=== PATIENT | female | born 1965 | race American Indian/Alaskan Native ===

== ENCOUNTER 2019-02-07 06:03 | Observation (INO) | payer OTHER ==
[2019-02-05 11:56] LABS: Basophils % (Auto) 0.6 % (0.0-1.8); Eosinophils # (Auto) 0.1 K/mm3 (0.0-0.4); Eosinophils % (Auto) 0.9 % (0.0-4.3); Hematocrit 36.6 % (30.3-42.9); Hemoglobin 11.9 gm/dl (10.1-14.3); Lymphocytes # (Auto) 1.9 K/mm3 (1.2-5.4); Lymphocytes % (Auto) 33.4 % (13.4-35.0); Mean Corpuscular HGB Conc 33 % (30-34); Mean Corpuscular Volume 85 fl (79-97); Monocytes # (Auto) 0.3 K/mm3 (0.0-0.8); Monocytes % (Auto) 5.6 % (0.0-7.3); Platelet Count 203 K/mm3 (140-440); Red Cell Distribution Width 14.2 % (13.2-15.2)
[2019-02-05 12:17] LABS: BUN/Creatinine Ratio 20; Blood Urea Nitrogen 14 mg/dL (7-17); Hemolysis Index 15
--- NOTE | 2019-02-05 12:18 | Anesthesia Consultation ---
Anesthesia Consult and Med Hx Date of service: 02/07/19 - Airway Anesthetic Teeth Evaluation: Good, Bridges (right lower) ROM Head & Neck: Adequate Mental/Hyoid Distance: Adequate Mallampati Class: Class III Intubation Access Assessment: Possibly Difficult - Pulmonary Exam CTA: Yes - Cardiac Exam Cardiac Exam: RRR - Pre-Operative Health Status ASA Pre-Surgery Classification: ASA2 Proposed Anesthetic Plan: General Nerve Block: TAP Block - Pulmonary Hx Smoking: No Hx Respiratory Symptoms: No - Cardiovascular System Hx Hypertension: Yes Hx Heart Attack/AMI: No Hx Cardia Arrhythmia: Yes (1 episode a-fib 5 yrs ago w/ neg cardiac work up. No recurrence.) - Central Nervous System CVA: No - Gastrointestinal Hx Gastroesophageal Reflux Disease: No - Endocrine Hx Renal Disease: No Hx Liver Disease: No Hx Insulin Dependent Diabetes: No Hx Non-Insulin Dependent Diabetes: No Hx Thyroid Disease: No - Hematic Hx Anemia: Yes - Other Systems Hx Obesity: Yes (BMI 35) - Additional Comments Anesthesia Medical History Comments: No prior GA. No FHx anesthetic complications.
--- NOTE | 2019-02-06 15:23 | History and Physical Report ---
History of Present Illness Date of examination: 02/06/19 Date of admission: 02/07/2019 Chief complaint: pelvic pain History of present illness: 53y/o with a known history of uterine fibroids. The patient reports worsening of her pelvic pain. She has undergone a UFE in the past with resolution of her vaginal bleeding however the patient continues to experience pelvic pain. She elects for definitive surgical management. Past History Past Medical History: hypertension Past Surgical History: other (Essure; UFE) [employer] History: herpes Social history: - Obstetrical History : 1 Para: 1 Hx # Term Pregnancies: 1 Number of Pregnancies: 0 Spontaneous Abortions: 0 Induced : 0 Number of Living Children: 1 Medications and Allergies Allergies Allergy/AdvReac Type Severity Reaction Status Date / Time No Known Allergies Allergy Unverified 01/31/19 15:11 Home Medications Medication Instructions Recorded Confirmed Last Taken Type Acyclovir 400 mg PO DAILY 01/31/19 01/31/19 Unknown History hydroCHLOROthiazide [Hctz] 12.5 mg PO QDAY 01/31/19 01/31/19 Unknown History Active Meds: Active Medications Celecoxib (Celebrex) 200 mg PO PREOP NR Stop: 02/07/19 23:59 Fentanyl (Sublimaze) 100 mcg IV ONCE PRN PRN Reason: sedation for nerve block Gabapentin (Gabapentin) 300 mg PO PREOP NR Stop: 02/07/19 23:59 Lactated Ringer's (Lactated Ringers) 1,000 mls @ 100 mls/hr IV DIRECT ALEX Midazolam HCl (Versed) 2 mg IV PREOP NR Stop: 02/07/19 23:59 Review of Systems All systems: negative Genitourinary: pelvic pain - Vital Signs Vital signs: Vital Signs Temp Pulse Resp BP Pulse Ox 97.9 F 64 20 176/93 100 02/05/19 11:25 02/05/19 11:25 02/05/19 11:25 02/05/19 11:25 02/05/19 11:25 Temp Pulse Resp BP Pulse Ox 97.9 F 64 20 176/93 100 02/05/19 11:25 02/05/19 11:25 02/05/19 11:25 02/05/19 11:25 02/05/19 11:25 - Physical Exam Breasts: Positive: deferred Cardiovascular: Regular rate Lungs: Positive: Clear to auscultation Results Result Diagrams: 02/05/19 11:40 02/05/19 11:40 All other labs normal. Assessment and Plan - Patient Problems (1) Fibroid uterus Status: Acute Plan to address problem: proceed with a robotic hysterectomy/BSO (2) Chronic pelvic pain in female Status: Acute
[~2019-02-07 06:03] MED LIST: CELECOXIB 200 MG CAP PO NR; GABAPENTIN 300 MG CAP PO NR; LACTATED RINGERS 1,000 ML IV SCH; MIDAZOLAM 2 MG/2 ML INJ IV NR; ceFAZolin/Water 2 GM/20 ML 2 GM/20 ML SYRINGE IV NR; fentaNYL 100 MCG/2 ML INJ IV PRN
[2019-02-07] MEDS ORDERED: dexAMETHasone 4 MG/ML VIAL ONE (07:15)
[2019-02-07] MEDS ORDERED: ROCURONIUM 50 MG/5 ML INJ IV ONE (07:16)
[2019-02-07] MEDS ORDERED: fentaNYL 100 MCG/2 ML INJ ONE (07:16)
[2019-02-07] MEDS ORDERED: LIDOCAINE (1%) 10 MG/1 ML VIAL 20 ML MDV ONE (07:16)
[2019-02-07] MEDS ORDERED: LIDOCAINE MPF (2%) 20 MG/1 ML VIAL 5 ML ONE (07:16)
[2019-02-07] MEDS ORDERED: BUPIVACAINE-EPINEPHRINE/PF 0.25%-1:200,000 (30 ML) VIAL INFILTRATI ONE (07:16)
[2019-02-07] MEDS ORDERED: PROPOFOL 200 MG/20 ML VIAL IV ONE (07:17)
[2019-02-07] MEDS ORDERED: BUPIVACAINE/PF (0.5%) 5 MG/1 ML 30 ML VIAL INFILTRATI ONE (07:23)
[2019-02-07] MEDS ORDERED: GELATIN SPONGE,ABSORBABLE 1 GM POWDER MM ONE (07:23)
[2019-02-07] MEDS ORDERED: METHYLENE BLUE 50 MG/10 ML AMP ONE (07:23)
[2019-02-07] MEDS ORDERED: THROMBIN (RECOMBINANT) 5,000 UNIT VIAL TP ONE (07:24)
[2019-02-07] MEDS ORDERED: NEOMY 40 MG/POLYMYXIN B 200,000 UNITS/ML (GU) AMPULE IR ONE ×2 (07:24→08:40)
[2019-02-07] MEDS ORDERED: SODIUM CHLORIDE 0.9% IRR 1,500 ML BOTTLE IR ONE (08:41)
[2019-02-07] MEDS ORDERED: SODIUM CHLORIDE 0.9% IRRIG SOLN 2000 ML IR ONE (08:41)
[2019-02-07] MEDS ORDERED: dexAMETHasone 20 MG/5 ML VIAL ONE (08:50)
[2019-02-07] MEDS ORDERED: ONDANSETRON 4 MG/2 ML INJ ONE (08:50)
--- NOTE | 2019-02-07 08:51 | Operative Report ---
Operative Report Operative Report: Date of surgery: 02/07/2019 Preoperative diagnoses: Symptomatic uterine fibroids; pelvic pain Postoperative diagnoses: Same as above Procedure: Robotic hysterectomy and bilateral salpingo-oophorectomy Surgeon: Torie Foster M.D. Intake Clinician: Yuridia Meier Anesthesia: Gen. endotracheal anesthesia Estimated blood loss: 50 mL Pathology: Uterus, cervix, bilateral tubes and ovaries Indication: 53-year-old 001 with a history of symptomatic uterine fibroids. The patient reports worsening pelvic pain has elected to undergo definitive surgical management. Procedure: The patient was taken to the operating room and given general endotracheal anesthesia without complication. She is prepped and draped in a normal sterile fashion. A bivalve speculum was placed in the patient's vagina and a single- tooth tenaculum placed on the anterior lip of the cervix. The uterus was sounded with the uterine sound. A Mabaya uterine manipulator was placed in the bivalve speculum was then removed. Attention was then turned to the patient's abdomen where a 12 millimeter supra umbilical skin incision was then made. A Veress needle was placed and peritoneal entry was verified water-filled syringe. Insufflation of the peritoneal cavity was performed with CO2 gas. The 12 mm trocar was then placed under direct visualization. An additional 8 mm trocar was placed on the patient's left and right lateral side just opposite of the supraumbilical trocar. An additional 5 mm right lateral trocar was then placed as the accessory port. The Axel Miller device was used to close the fascia of the 12 mm incision. The patient was then placed in steep Trendelenburg. The da Zechariah robot was then engaged. A fenestrated forcep was placed in arm 2 and a vessel sealer was placed in arm 1. The surgeon then transferred to the surgical console. Gen. survey revealed an enlarged fibroid uterus with normal tubes and ovaries bilaterally. The infundibulopelvic ligament was then isolated on the right. The vessel sealer was used to coagulate the ligament which was then transected. The tube and ovary were transected from the supply. The round ligament was then coagulated and transected also. The vesicouterine peritoneum was then entered from the patient's right side. The uterine vessels were then coagulated with the vessel sealer. The vessels were then transected . Attention was then turned to the patient's left side where the infundibulopelvic ligament and mesosalpinx were again isolated coagulated and transected. The vesical peritoneum was then entered from the left and joined in the midline. Peritoneum was reflected off of the lower uterine segment. Uterine vessels were then coagulated and then transected. The blood supply to the uterus was adequately contained, a posterior colpotomy was made. The V care ring was visualized. Posterior colpotomy was created with the monopolar scissors. The incision was continued circumferentially until anterior colpotomy was made. The cervix and uterus were amputated from the vaginal cuff. The uterus was then removed along with the tubes and ovaries bilaterally through the vagina and a warm laparotomy sponge was placed and maintain the pneumoperitoneum. The vaginal cuff was then closed in a running fashion with V lock suture. Irrigation of the pelvis was performed. Hemoblast was applied to the incision. The skin was then reapproximated with 4-0 Monocryl. The tissue was sent to pathology which included the cervix, uterus, tubes and ovaries. The patient was then successfully extubated. She was then taken to the recovery room in stable condition. All sponge laps and needle counts were correct x2.
[2019-02-07] MEDS ORDERED: NEOSTIGMINE 10MG/10 ML INJ MDV ONE (08:52)
[2019-02-07] MEDS ORDERED: GLYCOPYRROLATE 0.4 MG/2 ML INJ ONE (08:52)
--- NOTE | 2019-02-07 09:14 | Anesthesia Day of Surgery ---
Anesthesia Day of Surgery - Day of Surgery Patient Examined: Yes Patient H&P Reviewed: Yes Patient is NPO: Yes
[2019-02-07] MEDS ORDERED: ONDANSETRON 4 MG/2 ML INJ IV PRN (09:30)
[2019-02-07] MEDS ORDERED: HYDROmorphone 1 MG/1 ML INJ IV PRN (09:30)
[2019-02-07] MEDS ORDERED: ZOLPIDEM 5 MG TAB PO PRN (09:30)
[2019-02-07] MEDS ORDERED: MORPHINE 4 MG/1 ML INJ IV PRN (09:30)
[2019-02-07] MEDS ORDERED: ACETAMINOPHEN 325 MG TAB PO PRN (09:30)
[2019-02-07] MEDS ORDERED: D5W/LACTATED RINGERS 1,000 ML IV SCH (09:30)
[2019-02-07] MEDS ORDERED: oxyCODONE /ACETAMINOPHEN 5-325MG TAB PO PRN (09:30)
[2019-02-07] MEDS ORDERED: IBUPROFEN 800 MG TAB PO PRN (09:30)
[2019-02-07] MEDS ORDERED: D5W/LACTATED RINGERS 1,000 ML IV ONE (09:41)
[2019-02-07] MEDS ORDERED: KETOROLAC 30 MG/1 ML INJ ONE (09:41)
[2019-02-07] MEDS: KETOROLAC 30 MG/1 ML INJ IV SCH ×2 (09:45→17:21)
--- NOTE | 2019-02-07 11:16 | Post Anesthesia Evaluation ---
- Post Anesthesia Evaluation Patient Participated: Yes Airway Patent: Yes Stable Respiratory Function: Yes Nausea/Vomiting: No Temp > 96.8F: Yes Pain Manageable: Yes Adequeate Hydration: Yes Anesthesia Complications: No
[2019-02-08 06:06] LABS: Hematocrit 35.2 % (30.3-42.9); Hemoglobin 11.8 gm/dl (10.1-14.3)
--- NOTE | 2019-02-08 08:06 | Progress Note ---
Assessment and Plan - Patient Problems (1) Fibroid uterus Current Visit: No Status: Acute Plan to address problem: patient doing well discharge home (2) Chronic pelvic pain in female Current Visit: No Status: Acute Subjective - Subjective Date of service: 02/08/19 Interval history: Patient reports feeling well. She has voided and tolerated her diet. Pain well controlled Patient reports: appetite normal, voiding normally, pain well controlled Objective - Vital Signs Latest vital signs: Vital Signs Temp Pulse Pulse Resp BP BP Pulse Ox 02/08/19 00:07 97.6 F 78 20 124/81 97 02/07/19 20:29 97.2 F L 70 20 136/85 97 02/07/19 16:24 98.6 F 63 18 135/73 92 02/07/19 10:35 63 16 02/07/19 10:22 97.8 F 63 16 145/85 100 02/07/19 10:20 97.8 F 63 16 145/85 98 02/07/19 10:15 16 02/07/19 10:10 69 15 134/85 100 02/07/19 09:55 97.2 F L 68 15 114/84 100 02/07/19 09:45 14 02/07/19 09:40 67 15 115/81 100 02/07/19 09:25 69 17 125/88 100 02/07/19 09:20 70 16 126/83 100 02/07/19 09:15 77 15 141/79 100 02/07/19 09:10 97.7 F 80 14 130/56 100 Intake and Output 02/07/19 02/08/19 02/08/19 22:59 06:59 14:59 Intake Total 1360 250 Output Total 1700 400 Balance -340 -150 Intake: Oral 1120 250 Intake, Free Water 240 Output: Urine 1700 400 Indwelling Catheter 1700 400 Other: Total, Intake Amount 400 250 Total, Output Amount 500 400 Voiding Method Toilet # Voids Indwelling Catheter 2,400 - Exam Abdomen: Present: normal appearance
--- NOTE | 2019-02-08 08:24 | Discharge Summary ---
Providers - Providers Date of Admission: 02/07/19 08:51 Date of discharge: 02/08/19 Attending physician: SE HUGHES Primary care physician: ZAKIA BERNAL Hospitalization Reason for admission: other (Uterine fibroids) Procedure: other (Robotic hysterectomy and BSO) Incision: normal Discharge diagnosis: other (Uterine fibroids) Hospital course: Patient admitted the day of surgery and underwent a robotic hysterectomy and BSO. See op note. Postop unremarkable Condition at discharge: Good Disposition: DC-[id number] TO HOME OR SELFCARE - Discharge Diagnoses (1) Fibroid uterus Status: Acute (2) Chronic pelvic pain in female Status: Acute Plan - Discharge Medications Prescriptions: Ibuprofen [Motrin] 800 mg PO Q8HR PRN #60 tablet PRN Reason: Pain, Mild (1-3) oxyCODONE /ACETAMINOPHEN [Percocet 5/325] 1 tab PO Q6HR PRN #30 tablet PRN Reason: Pain - Provider Discharge Summary Activity: no sex for 6 weeks, no heavy lifting 4 weeks, no strenuous exercise Diet: routine Instructions: routine Additional instructions: [] Smoking cessation referral if applicable(refer to patient education folder for contact #) [] Refer to [facility] Booklet Call your doctor immediately for: * Fever > 100.5 * Heavy vaginal bleeding ( >1 pad per hour) * Severe persistent headache * Shortness of breath * Reddened, hot, painful area to leg or breast * Drainage or odor from incision. * Keep incision clean and dry at all times and follow doctor's instructions regarding bathing/showering schedule followup in [address] Graf - Follow up plan Forms: [facility] Discharge Summary, Discharge Signature Page
[2019-02-08 08:54] VITALS: BP 123/76
== END 2019-02-08 09:00 | disposition home or self-care (01) ==
LOC: OR 06:03 → OB 08:51
PROVIDERS: ADMIT Obstetrics & Gynecology; ATTEND Obstetrics & Gynecology
DX: D25.9 Leiomyoma of uterus, unspecified (principal); R10.2 Pelvic and perineal pain; I10 Essential (primary) hypertension
CPT/HCPCS: 36415; 58571; 64450; 80048; 84703; 85014; 85018; 85025; 86850; 86900; 86901; 88307; 96374; 96376; A4217; G0378; J0690; J1100; J1885; J2250; J2405; J2704; J2710; J3010; J7120; J7121; S2900; A4649; Q9968